=== PATIENT | male | born 1980 | race Caucasian/White ===

== ENCOUNTER → 2019-10-28 | Outpatient (CLI) | payer OTHER ==
--- NOTE | 2019-10-29 10:43 | REP ---
REASON: Trauma. There is a comminuted intra-articular fracture of the mid and distal portions of the proximal phalanx of the 1st digit of the right foot. There is associated soft tissue swelling. There is mild subluxation of the interphalangeal joint. IMPRESSION: Findings as described above.
== END ==
LOC: M WUC 13:31
PROVIDERS: ATTEND Physician Assistant
DX: S92.411A Displaced fracture of proximal phalanx of right great toe, initial encounter for closed fracture (principal); X58.XXXA Exposure to other specified factors, initial encounter; Y92.9 Unspecified place or not applicable

== ENCOUNTER → 2023-03-17 | Outpatient (CLI) | payer OTHER | LOC: M OUTALCOH 10:05 | PROVIDERS: ATTEND Psychiatry & Neurology Psychiatry | DX: F10.10 Alcohol abuse, uncomplicated (principal) ==

== ENCOUNTER 2023-04-19 17:07 | Inpatient (IN) | payer OTHER ==
[~2023-04-19] VITALS: Ht 175.3 cm; Wt 96.4 kg
[2023-04-19 18:25] LABS: BASO % 0.4 % (0.0-1.0); EOS # 0.1 10^3/uL (0.0-0.5); EOS % 0.7 % (0.0-3.0); HEMATOCRIT 47.2 % (42.0-52.0); HEMOGLOBIN 16.3 g/dl (13.5-17.5); LYMPH # 1.1 10^3/uL (1.5-5.0); LYMPH % 9.8 % (24.0-44.0); MEAN CORPUSCULAR HEMOGLOBIN 31.7 pg (27.0-33.0); MEAN CORPUSCULAR HGB CONC 34.5 g/dl (32.0-36.5); MEAN CORPUSCULAR VOLUME 91.8 fl (80.0-96.0); MONO # 1.1 10^3/uL (0.0-0.8); NEUTROPHILS # 8.5 10^3/uL (1.5-8.5); NEUTROPHILS % 78.8 % (36.0-66.0); PLATELET COUNT, AUTOMATED 261 10^3/uL (150-450); RED BLOOD COUNT 5.14 10^6/uL (4.30-6.10); WHITE BLOOD COUNT 10.7 10^3/uL (4.0-10.0)
[2023-04-19 18:39] LABS: INR 1.01
[2023-04-19 18:40] LABS: PARTIAL THROMBOPLASTIN TIME 29.4 SECONDS (24.8-34.2)
[2023-04-19 18:47] LABS: CK-MB VALUE MASS < 1.0 NG/ML (<3.6); ETHYL ALCOHOL (ETHANOL) < 0.003 % (0.000-0.010); LIPASE 252 U/L (12-53); RSV AMPLIFICATION NEGATIVE (NEGATIVE)
[2023-04-19 18:49] LABS: ALKALINE PHOSPHATASE 99 U/L (46-116); ALT/SGPT 73 U/L (7.0-40); AST/SGOT 59 U/L (<34); BILIRUBIN,DIRECT 0.5 MG/DL (<0.4); BILIRUBIN,TOTAL 1.4 MG/DL (0.3-1.2); BLOOD UREA NITROGEN 12 MG/DL (9-23); CALCIUM LEVEL 9.6 MG/DL (8.5-10.1); CARBON DIOXIDE LEVEL 22 MMOL/L (20-31); CHLORIDE LEVEL 104 MMOL/L (98-107); CPK CREATINE PHOSPHOKINASE 103 U/L (46-171); GLOMERULAR FILTRATION RATE > 60.0 (>60); GLUCOSE, FASTING 124 MG/DL (60-100); MB/CK RELATIVE INDEX 0.97 (< OR =4); SODIUM LEVEL 138 MMOL/L (136-145); TOTAL PROTEIN 7.6 G/DL (5.7-8.2)
[2023-04-19] MEDS ORDERED: NS IV ONE (19:05)
[2023-04-19] MEDS ORDERED: PIPERACILLIN/TAZOBACTAM SOD 3.375 GM in D5W MINI-BAG PLUS 50 ML IV ONE (19:05)
[2023-04-19] MEDS ORDERED: ISOVUE-370 76% 100ML VIAL As Ordered ONE (19:09)
[2023-04-19 19:10] LABS: AMYLASE 50 U/L (30-118)
[2023-04-19] MEDS ORDERED: MORPHINE 4 MG/ML 1ML VIAL IV ONE ×2 (19:55→21:35)
[2023-04-19] MEDS ORDERED: ONDANSETRON 4MG 2ML VIAL IV ONE (19:55)
[2023-04-19] MEDS ORDERED: METOCLOPRAMIDE INJ 10MG/2ML VIAL IV PRN (22:00)
[2023-04-19] MEDS ORDERED: OMEP40CA5 PO (22:05)
[2023-04-19] MEDS ORDERED: HYDR-3363 PO (22:05)
[2023-04-19] MEDS ORDERED: ATOR1TAB19 PO (22:05)
[2023-04-19] MEDS ORDERED: HOME MED LIST COMPLETE! XX SCH (22:10)
[2023-04-19 23:55] VITALS: BP 150/83; TEMP 98.2; O2SAT 96
[2023-04-20] MEDS ORDERED: THIAMINE 200MG 2ML VIAL IM ONE
[2023-04-20] MEDS: LR 1,000 ML IV SCH ×2 (00:08→03:52)
[2023-04-20] MEDS: MORPHINE 2 MG/ML 1ML VIAL IV PRN ×2 (00:23→05:07)
[2023-04-20 00:27] VITALS: BP 150/83
[2023-04-20] MEDS ORDERED: ONDANSETRON 4MG 2ML VIAL IV PRN (02:00)
[2023-04-20] MEDS: HEPARIN SOD (PORCINE) 5000UNITS/ML 1ML VIAL/SYRINGE SC SCH ×3 (05:07→21:26)
[2023-04-20 05:08] VITALS: BP 147/81; TEMP 98.1; O2SAT 95
[2023-04-20 07:11] LABS: HEMATOCRIT 41.1 % (42.0-52.0); MEAN CORPUSCULAR HGB CONC 33.8 g/dl (32.0-36.5); MEAN CORPUSCULAR VOLUME 94.5 fl (80.0-96.0); PLATELET COUNT, AUTOMATED 197 10^3/uL (150-450); RED BLOOD COUNT 4.35 10^6/uL (4.30-6.10); WHITE BLOOD COUNT 8.4 10^3/uL (4.0-10.0)
[2023-04-20 07:12] LABS: HEMOGLOBIN 13.9 g/dl (13.5-17.5)
[2023-04-20 07:32] LABS: LIPASE 105 U/L (12-53)
[2023-04-20 07:42] LABS: ALBUMIN 3.2 G/DL (3.2-5.2); ALKALINE PHOSPHATASE 74 U/L (46-116); ALT/SGPT 45 U/L (7.0-40); AST/SGOT 30 U/L (<34); BLOOD UREA NITROGEN 6 MG/DL (9-23); CALCIUM LEVEL 8.3 MG/DL (8.5-10.1); CARBON DIOXIDE LEVEL 28 MMOL/L (20-31); CHLORIDE LEVEL 105 MMOL/L (98-107); CREATININE FOR GFR 0.87 MG/DL (0.70-1.30); GLOMERULAR FILTRATION RATE > 60.0 (>60); GLUCOSE, FASTING 109 MG/DL (60-100); MAGNESIUM LEVEL 1.6 MG/DL (1.8-2.4); PHOSPHORUS LEVEL 3.1 MG/DL (2.5-4.9); POTASSIUM SERUM 3.8 MMOL/L (3.5-5.1); SODIUM LEVEL 139 MMOL/L (136-145); TOTAL PROTEIN 6.1 G/DL (5.7-8.2)
[2023-04-20 08:00] VITALS: BP 142/80
[2023-04-20] MEDS ORDERED: FOLIC ACID 1MG TAB PO SCH (09:00)
[2023-04-20] MEDS ORDERED: THIAMINE 100 MG TAB PO SCH (09:00)
[2023-04-20] MEDS ORDERED: MULTIVITAMINS/MINERALS THERAP 1 TAB PO SCH (09:00)
[2023-04-20] MEDS: THIAMINE 100 MG TAB PO SCH ×2 (09:06→21:25)
[2023-04-20] MEDS: THIAMINE 200MG 2ML VIAL IM SCH (09:07)
[2023-04-20] MEDS: KETOROLAC 30 MG/ML 1ML VIAL IV PRN ×2 (10:23→21:27)
[2023-04-20 14:00] VITALS: BP_SYST 134; BP_SYST 136; BP_DIAS 76; BP_DIAS 80; TEMP 98.1; O2SAT 97
[2023-04-20 20:06] VITALS: BP 154/93; TEMP 98.6; O2SAT 95
[2023-04-20 21:28] VITALS: BP 131/85
[2023-04-21 05:00] VITALS: BP 157/89; TEMP 97.9; O2SAT 96
[2023-04-21 05:33] LABS: HEMATOCRIT 43.5 % (42.0-52.0); HEMOGLOBIN 14.5 g/dl (13.5-17.5); MEAN CORPUSCULAR HEMOGLOBIN 31.7 pg (27.0-33.0); MEAN CORPUSCULAR HGB CONC 33.3 g/dl (32.0-36.5); PLATELET COUNT, AUTOMATED 199 10^3/uL (150-450); RED BLOOD COUNT 4.58 10^6/uL (4.30-6.10); WHITE BLOOD COUNT 6.9 10^3/uL (4.0-10.0)
[2023-04-21] MEDS: HEPARIN SOD (PORCINE) 5000UNITS/ML 1ML VIAL/SYRINGE SC SCH (06:00)
[2023-04-21 06:04] LABS: LIPASE 64 U/L (12-53)
[2023-04-21 06:06] LABS: AMYLASE 28 U/L (30-118)
[2023-04-21 06:10] LABS: ALBUMIN 3.2 G/DL (3.2-5.2); ALKALINE PHOSPHATASE 78 U/L (46-116); ALT/SGPT 40 U/L (7.0-40); AST/SGOT 27 U/L (<34); BILIRUBIN,TOTAL 1.1 MG/DL (0.3-1.2); BLOOD UREA NITROGEN < 5 MG/DL (9-23); CARBON DIOXIDE LEVEL 28 MMOL/L (20-31); CHLORIDE LEVEL 102 MMOL/L (98-107); CREATININE FOR GFR 0.77 MG/DL (0.70-1.30); GLOMERULAR FILTRATION RATE > 60.0 (>60); GLUCOSE, FASTING 82 MG/DL (60-100); POTASSIUM SERUM 3.9 MMOL/L (3.5-5.1); SODIUM LEVEL 138 MMOL/L (136-145); TOTAL PROTEIN 6.6 G/DL (5.7-8.2)
[2023-04-21 08:00] VITALS: BP 136/84
[2023-04-21] MEDS: THIAMINE 200MG 2ML VIAL IM SCH (08:41)
[2023-04-21] MEDS: THIAMINE 100 MG TAB PO SCH (08:41)
[2023-04-21] MEDS ORDERED: THIA100TA PO (12:19)
[2023-04-21] MEDS ORDERED: IBUP-1022 PO (12:19)
[2023-04-21] MEDS ORDERED: FOLI1TAB11 PO (12:19)
[2023-04-22] MEDS ORDERED: MULTIVITAMINS/MINERALS THERAP 1 TAB PO SCH (09:00)
[2023-04-22] MEDS ORDERED: FOLIC ACID 1MG TAB PO SCH (09:00)
== END 2023-04-21 13:32 | disposition home or self-care (01) | DRG 440 ==
LOC: M ED 17:07 → M ED INP 21:59 → ENRESERV 22:38 → M MSPAV 23:54
PROVIDERS: ADMIT Internal Medicine; ATTEND Internal Medicine Nephrology
DX: K85.20 Alcohol induced acute pancreatitis without necrosis or infection (principal); F10.21 Alcohol dependence, in remission; K70.10 Alcoholic hepatitis without ascites; Z79.899 Other long term (current) drug therapy; K76.0 Fatty (change of) liver, not elsewhere classified; K44.9 Diaphragmatic hernia without obstruction or gangrene; K42.9 Umbilical hernia without obstruction or gangrene; K40.20 Bilateral inguinal hernia, without obstruction or gangrene, not specified as recurrent; F12.10 Cannabis abuse, uncomplicated; E78.5 Hyperlipidemia, unspecified; F41.9 Anxiety disorder, unspecified